=== PATIENT | male | born 1940 | race Caucasian/White ===

== ENCOUNTER 2017-08-15 16:32 | Outpatient (CLI) | payer BC | END 2017-08-15 16:33 | disposition EMS.NT | LOC: EMS 16:32 | PROVIDERS: ATTEND Surgery | DX: R42 Dizziness and giddiness (principal); W19.XXXA Unspecified fall, initial encounter; Y92.007 Garden or yard of unspecified non-institutional (private) residence as the place of occurrence of the external cause ==

== ENCOUNTER 2017-08-16 22:27 | Outpatient (CLI) | payer BC | END 2017-08-16 22:28 | disposition critical access hospital (66) | LOC: EMS 22:27 | PROVIDERS: ATTEND Surgery | DX: M25.512 Pain in left shoulder (principal); W01.10XA Fall on same level from slipping, tripping and stumbling with subsequent striking against unspecified object, initial encounter; Y92.007 Garden or yard of unspecified non-institutional (private) residence as the place of occurrence of the external cause | CPT/HCPCS: A0425; A0429 ==

== ENCOUNTER 2017-08-16 22:40 | Emergency (ER) | payer BC, MEDICARE ==
--- NOTE | 2017-08-16 23:15 | ED Physician Documentation ---
PD HPI Fall - Stated complaint Stated Complaint: GLF, LEFT FLANK AND RIGHT SHOULDER PAIN - Chief complaint Chief Complaint: Trauma Ext - History obtained from History obtained from: Patient, Family - History of Present Illness Mechanism of injury: Slipped Fall distance: Standing position Where injury occurred: Home Timing - onset: Today Injury(ies) location: Chest, Back, Right Lower Extremity Quality of pain: Pain, Aching Associated symptoms: No: LOC, AMS, Amnesia Similar symptoms before: No diagnosis Recently seen: Not recently seen - Additional information Additional information: Patient is a 77 year old male with a history of metastatic prostate CA who is presenting to the emergency department for pain and falls. According to patient and patient had his first fall when he was outside two days ago, he had slipped and due to his bad knees he could not stand back up. Patient eventually crawled to the back door and the found him. Tonight patient went outside to the shed and tripped. thinks it is because he took a muscle relaxer. Patient could not get back up so they called ems who brought the patient in. Upon initial evaluation patient complained of back pain that has been going on for awhile, right rib pain, right hip pain and knee pain. Patient denies any loc. Review of Systems Constitutional: denies: Fever, Myalgias Eyes: denies: Loss of vision, Decreased vision Ears: denies: Drainage/discharge Nose: denies: Epistaxis Throat: denies: Dental pain / toothache Cardiac: reports: Chest pain / pressure. denies: Palpitations, Calf pain Respiratory: reports: Wheezing. denies: Dyspnea, Cough GI: denies: Nausea, Vomiting : denies: Hematuria Skin: reports: Abrasion (s). denies: Rash, Laceration (s) Musculoskeletal: reports: Back pain, Extremity pain, Joint pain. denies: Neck pain Neurologic: reports: Generalized weakness. denies: Focal weakness, Numbness, Syncope, Headache, Head injury, LOC Immunocompromised: denies: Immunocompromised PD PAST MEDICAL HISTORY - Past Medical History Cardiovascular: None Respiratory: None Neuro: None Endocrine/Autoimmune: None GI: None : None HEENT: Other Psych: Depression Musculoskeletal: Osteoporosis, Fatigue Derm: None - Past Surgical History General: Hiatal hernia repair, Colonoscopy HEENT: Cataracts Derm: Skin grafts, Skin cancer surgery - Present Medications Home Medications: Ambulatory Orders Medication Instructions Recorded Confirmed predniSONE [Prednisone] 10 mg PO BID 12/05/16 06/05/17 Cyclobenzaprine [Flexeril] 10 mg PO Q6HR PRN 08/16/17 08/16/17 Hydrocodone/Acetaminophen [Vicodin 1 tab PO Q4HR PRN 08/16/17 5-300 mg Tablet] - Allergies Allergies/Adverse Reactions: Allergies Allergy/AdvReac Type Severity Reaction Status Date / Time naproxen [From Aleve] Allergy Hives Verified 08/16/17 22:45 PD ED PE NORMAL - Vitals Vital signs reviewed: Yes - General General: Alert and oriented X 3 - HEENT HEENT: Atraumatic - Neck Neck: No bony TTP - Cardiac Cardiac: RRR, No murmur - Abdomen Abdomen: Soft - Neuro Neuro: Alert and oriented X 3, No motor deficit, Normal speech Eye Opening: Spontaneous Motor: Obeys Commands Verbal: Oriented GCS Score: 15 PD ED PE EXPANDED - HEENT HEENT: Dry mucous membranes - Cardiac Cardiac: Chest wall TTP (mild tenderness to palpation of sternal region and right ribs) - Respiratory Respiratory: Wheezing (minimal wheeze) - Back Back: Vertebral tenderness (upper thoracic tenderness) - Extremities Extremities: Right knee, Left knee (mild tenderness, swelling and abrasions of bilateral knees) Results - Vitals Vitals: Vital Signs - 24 hr 08/16/17 08/17/17 08/17/17 22:41 00:09 03:02 Temperature 36.6 C Heart Rate 113 H 107 H 110 H Respiratory 16 17 19 Rate Blood Pressure 121/78 128/81 H 122/69 O2 Saturation 93 94 98 08/17/17 03:15 Temperature Heart Rate 113 H Respiratory 12 Rate Blood Pressure O2 Saturation Oxygen O2 Source Room air - Labs Labs: Laboratory Tests 08/16/17 08/16/17 08/17/17 23:30 23:30 00:16 WBC 8.7 RBC 4.27 L Hgb 13.6 L Hct 39.9 L MCV 93.4 MCH 31.9 H MCHC 34.2 RDW 13.2 Plt Count 272 MPV 8.7 Neut # 6.6 Lymph # 1.3 L Isabella # 0.7 Eos # 0.1 Baso # 0.1 Absolute Nucleated RBC 0.00 Nucleated RBC % 0.0 Sodium 136 Potassium 3.4 L Chloride 99 L Carbon Dioxide 27 Anion Gap 10.0 BUN 16 Creatinine 0.9 Estimated GFR (MDRD) 82 L Glucose 116 H Calcium 9.3 Total Bilirubin 0.5 AST 46 H ALT 19 Alkaline Phosphatase 66 Total Creatine Kinase 1162 H* Total Protein 7.5 Albumin 4.4 Globulin 3.1 Albumin/Globulin Ratio 1.4 Lipase 14 L Urine Color YELLOW Urine Clarity HAZY Urine pH 5.5 Ur Specific [place] 1.020 Urine Protein NEGATIVE Urine Glucose (UA) NEGATIVE Urine Ketones NEGATIVE Urine Occult Blood MODERATE H Urine Nitrite NEGATIVE Urine Bilirubin NEGATIVE Urine Urobilinogen 0.2 (NORMAL) Ur Leukocyte Esterase NEGATIVE Urine RBC 6-10 H Urine WBC 0-3 Ur Squamous Epith Cells RARE Squamous Urine Crystals 0-2 Calcium Oxalate Urine Bacteria None Seen Urine Casts 3-5 Hyaline Casts Urine Mucus Few Strands Ur Microscopic Review INDICATED Urine Culture Comments NOT INDICATED - Rads (name of study) ct chest, abd pelvis Radiology: Final report received (T7 fracture of unknown time, pathologic rib fracture, possible very small non displaced sternal fracture) knee x-ray Radiology: Final report received (no acute fracture or dislocation) PD MEDICAL DECISION MAKING - ED course Complexity details: reviewed old records, reviewed results, re-evaluated patient , considered differential, d/w patient, d/w family ED course: Patient was seen and examined at bedside. IV access was gained, labs were drawn and imaging was ordered. When patient returned from imaging the results were reviewed. Patient's findings were consistent with metastatic disease. It seemed that the patient and family were unclear about the diagnosis. Patient was already on chronic pain medications. Patient was treated with a nebulizer treatment for mild wheezing, but was asking to go home. patient required no further work up and was stable for discharge with outpatient follow up. Departure - Departure Disposition: Home, Self Care Clinical Impression: Thoracic spine fracture Condition: Good Instructions: ED Fx Comp Vertebral Follow-Up: Joshua Blackburn MD [Provider Admit Priv/Credential] - Within 3 Days Comments: Your symptoms today are being caused by a spine fracture and a rib fracture. There is also spread of your prostate CA into your bones. You should continue with your pain management. You should follow up with Dr. Blackburn on saturday. You should stay well hydrated and get plenty of rest. It is imporatant that you take deep breaths to prevent atelectasis You may return to the emergency department at any time for new, worsening or uncontrollable symptoms. Discharge Date/Time: 08/17/17 03:40
[2017-08-16 23:41] LABS: BASOPHILS # (AUTO) 0.1 10^3/uL (0.0-0.1); BASOPHILS % (AUTO) 0.7 %; EOSINOPHILS # (AUTO) 0.1 10^3/uL (0.0-0.7); EOSINOPHILS % (AUTO) 1.7 %; HGB - HEMOGLOBIN 13.6 g/dL (14.0-18.0); LYMPHOCYTES # (AUTO) 1.3 10^3/uL (1.5-3.5); LYMPHOCYTES % (AUTO) 14.6 %; MEAN CORPUSCULAR HEMOGLOBIN 31.9 pg (27.0-31.0); MEAN CORPUSCULAR HGB CONC 34.2 g/dL (32.0-36.0); MEAN CORPUSCULAR VOLUME 93.4 fL (80.0-94.0); MEAN PLATELET VOLUME 8.7 fL (7.4-11.4); MONOCYTES # (AUTO) 0.7 10^3/uL (0.0-1.0); MONOCYTES % (AUTO) 7.9 %; NEUTROPHILS # (AUTO) 6.6 10^3/uL (1.5-6.6); NEUTROPHILS % (AUTO) 75.1 %; PLT - PLATELET COUNT 272 10^3/uL (130-450); RED BLOOD COUNT 4.27 10^6/uL (4.70-6.10); RED CELL DISTRIBUTION WIDTH 13.2 % (12.0-15.0); WHITE BLOOD COUNT 8.7 x10^3/uL (4.8-10.8)
[2017-08-17 00:04] LABS: ALBUMIN 4.4 g/dL (3.2-5.5); ALBUMIN/GLOBULIN RATIO 1.4 (1.0-2.2); BILIRUBIN,TOTAL 0.5 mg/dL (0.2-1.0); CALCIUM 9.3 mg/dL (8.5-10.3); CREATININE 0.9 mg/dL (0.6-1.2); TOTAL PROTEIN 7.5 g/dL (6.7-8.2)
[2017-08-17] MEDS ORDERED: SODIUM CHLORIDE 0.9% 1,000 ML IV ONE (00:05)
[2017-08-17 00:25] LABS: BILIRUBIN,URINE NEGATIVE (NEGATIVE); GLUCOSE, URINE (UA) NEGATIVE (NEGATIVE); KETONES,URINE (UA) NEGATIVE (NEGATIVE); LEUKOCYTE ESTERASE, URINE NEGATIVE (NEGATIVE); NITRITE,URINE NEGATIVE (NEGATIVE); OCCULT BLOOD,URINE MODERATE (NEGATIVE); PH,URINE 5.5 PH (5.0-7.5); PROTEIN,URINE NEGATIVE (NEGATIVE); UROBILINOGEN,URINE 0.2 (NORMAL) E.U./dL (NORMAL)
[2017-08-17] MEDS ORDERED: IOPAMIDOL-300 100 ML VIAL ONE (00:34)
[2017-08-17 00:52] LABS: CLARITY,URINE HAZY (CLEAR)
[2017-08-17 00:53] LABS: BACTERIA,URINE None Seen /HPF (None Seen); CRYSTALS,URINE 0-2 Calcium Oxalate /LPF; MUCUS,URINE Few Strands; SQUAMOUS EPITHELIAL CELL,UR RARE Squamous (<= Few)
[2017-08-17] MEDS ORDERED: IOPAMIDOL-300 100 ML VIAL IVP ONE (01:31)
--- NOTE | 2017-08-17 02:30 | CT Report ---
EXAM: CT CHEST EXAM DATE: 08/17/2017 01:35 AM. CLINICAL HISTORY: Fall, metastatic cancer, chest, back, hip and knee pain. COMPARISONS: None. TECHNIQUE: Routine helical CT imaging was performed through the chest. IV contrast: Nonionic. Reconst ructions: Coronal and sagittal. In accordance with CT protocol optimization, one or more of the following dose reduction techniques w ere utilized for this exam: automated exposure control, adjustment of mA and/or KV based on patient s ize, or use of iterative reconstructive technique. FINDINGS: Lungs/Pleura: Images are degraded due to motion artifact. Bibasilar atelectasis. No pleural effusion. No pneumothorax. Calcified pleural plaquing. Mediastinum: Heart size is normal. Coronary artery calcifications. No lymphadenopathy seen. Aortic at herosclerosis. No acute aortic abnormality. Bones: Motion artifact. Osteopenia. Sclerotic area in the left seventh rib suggesting metastatic dise ase. There is a pathologic fracture through this area. Vertebral body fracture at T7, possibly acute. There may be a subtle nondisplaced sternal fracture. Visualized Abdomen: See separate abdomen and pelvis CT report. Other: None. IMPRESSION: 1. Images are degraded due to motion artifact. 2. Bibasilar atelectasis. 3. Presumed osseous metastatic disease in the posterior left seventh rib with pathologic fracture. 4. Vertebral body fracture at T7, possibly acute. 5. There may be a subtle nondisplaced sternal fracture. [facility] Referring Provider Line: [phone] SITE ID: [id number]
--- NOTE | 2017-08-17 02:36 | CT Report ---
EXAM: CT ABDOMEN AND PELVIS EXAM DATE: 08/17/2017 01:35 AM. CLINICAL HISTORY: Fall, metastatic prostate cancer, chest, back, hip and knee pain. COMPARISONS: None. TECHNIQUE: Routine helical CT imaging was performed through the abdomen and pelvis. IV contrast: 100M L ISOVUE 300. Enteric contrast: No. Reconstructions: Coronal and sagittal. In accordance with CT protocol optimization, one or more of the following dose reduction techniques w ere utilized for this exam: automated exposure control, adjustment of mA and/or KV based on patient s ize, or use of iterative reconstructive technique. FINDINGS: Lung Bases: See separate chest CT report. Liver: No focal lesion identified. Gallbladder/Bile Ducts: Small calcified stones in the gallbladder without obvious cholecystitis. Spleen: Normal. Pancreas: Normal. Adrenal Glands: Normal. Kidneys: Small nonobstructing left renal stone. No masses or hydronephrosis. Peritoneal Cavity/Bowel: Colonic diverticulosis without definite diverticulitis. Moderate to large am ount of stool in the right hemicolon. No bowel obstruction seen. No free air or free fluid. No lympha denopathy. Appendix is retrocecal and appears normal. Pelvic Organs: Status post prostatectomy. Visualized pelvic organs are otherwise unremarkable. Vasculature: Mild atherosclerosis. Mild infrarenal aortic ectasia measuring 2.7 x 2.3 cm. No saurabh an eurysm. Bones: Osteopenia. Osseous metastatic disease is noted in the lumbar spine and sacrum. Degenerative c hanges in the spine with spinal stenosis. Old appearing upper endplate fracture at L2. Mild scoliosis . 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 Other: None. IMPRESSION: 1. Small calcified stones in the gallbladder without obvious cholecystitis. 2. Moderate to large amount of stool in the right hemicolon. 3. Small nonobstructing left renal stone. 4. Colonic diverticulosis. No definite diverticulitis. Appendix appears normal. 5. Osseous metastatic disease in the lumbar spine and sacrum. Degenerative changes and scoliosis in t he spine with spinal stenosis. 6. 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 [facility] Referring Provider Line: [phone] SITE ID: [id number]
--- NOTE | 2017-08-17 02:38 | XRAY Preliminary Report ---
Exam: XR KNEE 2 VIEW BILAT IMPRESSION: 1. Degenerative joint disease. No acute fracture or dislocation seen bilaterally. [facility] SITE ID: [id number]
--- NOTE | 2017-08-17 02:38 | XRAY Report ---
EXAMS: 1. Right Knee Radiography 2. Left Knee Radiography EXAM DATE:08/17/2017 01:30 AM. CLINICAL HISTORY:Fall, metastatic prostate cancer, chest, back, hip and knee pain. COMPARISON: None. TECHNIQUE: 2 views each. FINDINGS: Right Knee: Bones: No acute fracture seen. No focal area of bone destruction identified. Joints: No dislocation. No obvious joint effusion. Mild degenerative joint disease, especially in the medial and patellofemoral compartments. Soft Tissues: Mild soft tissue swelling. Left Knee: Bones: No acute fracture seen. No focal area of bone destruction identified. Joints: No dislocation. No definite joint effusion. Mild to moderate 3 compartment degenerative joint disease. Soft Tissues: Mild soft tissue swelling. IMPRESSION: 1. Degenerative joint disease. No acute fracture or dislocation seen bilaterally. [facility] Referring Provider Line: [phone] SITE ID: [id number]
[2017-08-17 03:03] VITALS: BP 122/69
[2017-08-17] MEDS ORDERED: IPRATROPIUM/ALBUTEROL 3 ML NEB INH STA (03:10)
== END 2017-08-17 03:40 | disposition home or self-care (01) ==
LOC: EDUNIT# → ED 22:40
DX: S22.069A Unspecified fracture of T7-T8 vertebra, initial encounter for closed fracture (principal); S22.32XA Fracture of one rib, left side, initial encounter for closed fracture; W01.0XXA Fall on same level from slipping, tripping and stumbling without subsequent striking against object, initial encounter; Y92.007 Garden or yard of unspecified non-institutional (private) residence as the place of occurrence of the external cause; C61 Malignant neoplasm of prostate; C79.51 Secondary malignant neoplasm of bone
CPT/HCPCS: 36415; 71260; 73565; 74177; 80053; 81001; 82550; 83690; 85025; 94640; 96360; 99284; Q9967; 81003; 87086

== ENCOUNTER 2017-09-27 10:04 | Outpatient (CLI) | payer BC ==
--- NOTE | 2017-09-27 14:13 | XRAY Report ---
TWO VIEW THORACIC SPINE: 09/27/2017 ORDERING PHYSICIAN: Thoracic spine. CLINICAL INDICATION: Back pain. COMPARISON: CT chest 08/17/2017. FINDINGS: Frontal and lateral views of the thoracic spine demonstrate progression of the T7 compression fracture, now with effectively 100% anterior height loss. No retropulsion is identified. No new vertebral body fracture is seen. IMPRESSION: PROGRESSION OF T7 COMPRESSION FRACTURE, NOW WITH 100% ANTERIOR HEIGHT LOSS. NO NEW VERTEBRAL BODY FRACTURE IS IDENTIFIED. TD: 09/27/2017 11:29
== END 2017-09-27 10:05 | disposition home or self-care (01) ==
LOC: DI 10:04
PROVIDERS: ATTEND Internal Medicine
DX: M54.6 Pain in thoracic spine (principal); M48.54XA Collapsed vertebra, not elsewhere classified, thoracic region, initial encounter for fracture
CPT/HCPCS: 72070